=== PATIENT | female | born 1960 | race Caucasian/White ===

== ENCOUNTER 2020-12-12 08:58 | Observation (INO) | payer OTHER ==
[~2020-12-12] VITALS: Ht 154.9 cm; Wt 91.2 kg
--- NOTE | ~2020-12-12 | OP ---
[facility] [address] [place] [address] OPERATIVE REPORT Name: HUSSAIN SCHWARTZ Room: [address] Ya#: [id number] Admission: 12/12/20 Attend Phys: Harrison Barajas Discharge: Date of : 62 Report #: [id number] THIS REPORT FOR: cc: Physician not on staff Physician not on staff Harrison Barajas MD ~ DOC #: [id number] Harrison Barajas MD DATE OF SURGERY: 12/12/2020 PREOPERATIVE DIAGNOSIS: Paraesophageal hernia. POSTOPERATIVE DIAGNOSIS: Paraesophageal hernia. OPERATION: Laparoscopic repair of paraesophageal hernia with mesh implantation with partial fundoplication. SURGEON: Harrison Barajas MD. ANESTHESIA: General. ESTIMATED BLOOD LOSS: Minimal. SPECIMENS: None. DESCRIPTION OF PROCEDURE: After informed consent was obtained, the patient was brought to the operating room and placed supine. SCDs were placed and working, preoperative antibiotics were administered, general anesthesia was induced. The abdomen was then prepped and draped in the usual sterile fashion. A 1 mm incision was made in the left upper quadrant. Veress needle was inserted. Pneumoperitoneum was established. A left periumbilical 10 mm trocar was then placed under direct vision. A left upper quadrant 5 mm trocar was placed as well as 2 right upper quadrant 5 mm ports. A Catina retractor was inserted through an incision in the epigastrium. The liver was then retracted superiorly and anteriorly. The pars flaccida was grasped and I incised the pars flaccida. LigaSure dissection was used to carry out dissection up to the right sukhi. The phrenoesophageal ligament was incised. The left sukhi was identified. Small hiatal hernia was then reduced. There was about 4 cm of intra-abdominal esophagus. I then took down the short gastric vessels using the LigaSure device. This was used to cauterize the short gastric vessels and [place] [address] OPERATIVE REPORT Name: HUSSAIN SCHWARTZ Room: [address] Naomy Pandya#: [id number] Admission: 12/12/20 Attend Phys: Harrison Barajas Discharge: Date of : 62 Report #: [id number] I performed a cruroplasty with a single 2-0 Ethibond suture. A 1 cm Phasix mesh was inserted on both sides of the crura to act as a pledget. The fundus of the stomach was then brought posteriorly around the distal esophagus. A 270-degree partial fundoplication was undertaken by using 2 sutures on each side of the esophagus and tying it down to the fundus. After this had been done, it did not appear too loose or too tight. The ports were then removed under direct vision after the liver was placed back into its normal position. The skin was then closed with 4-0 Monocryl. Incisions were dressed with Steri-Strips. COMPLICATIONS: None. DISPOSITION: The patient was taken to recovery in satisfactory condition. Harrison Barajas MD JDP/JOANNA By: [id number] Barajas MD /nt
[~2020-12-12 08:58] MED LIST: BUSPIRONE HCL10 MG PO; NORVASC5 MG PO; SYNTHROID88 MC1 PO; VITAMIN C100 MG; VITAMIN D-40010 MCG
[2020-12-12 10:02] LABS: HEMATOCRIT 43.8 % (37.0-47.0); HEMOGLOBIN 15.4 gm/dL (12.0-15.0); MCH 32.5 pg (26.0-34.0); MCHC 35.1 g/dL (28.0-37.0); MCV 92.7 fL (80.0-100.0); MPV 8.9 fl. (7.2-11.1); RBC 4.72 mil/uL (4.20-5.00); WBC 6.7 thou/uL (4.0-11.0)
--- NOTE | 2020-12-12 10:38 | EKG ---
[place] [address] ELECTROCARDIOGRAM REPORT Name: HUSSAIN SCHWARTZ Room: [address]R.#: [id number] Admission: 12/12/20 Attend Phys: Harrison Cardoso Discharge: Date of : 62 Date of Service: 12/12/20 0933 Report #: [id number] THIS REPORT FOR: //name// [facility] Test Date: 2020-12-12 Test Time: 09:33:37 Pat Name: HUSSAIN SCHWARTZ Department: Room: [place] [address] Gender: F [employer]: HA : 1960 Requested By: Harrison Barajas Order Number: [id number] Jesus MD: Anthony Bui Measurements Intervals [place] Rate: 70 P: [place]: 190 QRS: -21 QRSD: 142 T: 115 QT: 457 QTc: 494 Interpretive Statements Atrial-paced complexes Left bundle branch block Baseline wander in lead(s) II,III,aVF No previous ECG available for comparison Electronically Signed On 12-12-2020 10:37:58 CDT by Anthony Bui [email or web address] <ELECTRONICALLY SIGNED> By: Anthony Bui MD, [facility] 12/12/20 1037 0933 0933 Anthony Bui MD, [facility] /EPI
[2020-12-12 13:44] LABS: CALCIUM 9.5 mg/dL (8.5-10.1); CREATININE 0.9 mg/dL (0.6-1.3); POTASSIUM 3.8 mmol/L (3.5-5.1)
[2020-12-12 16:40] VITALS: BP 142/73
[2020-12-12 17:10] VITALS: BP 140/72
--- NOTE | 2020-12-12 17:30 | NUR ---
PT UP TO BEDSIDE COMMODE TO VOID. PT STEADY WITH STANDBY ASSIST. PT PLACED ON CAPNO BY RESPIRATORY THERAPY. WILL CONTINUE TO MONITOR.
[2020-12-12 17:40] VITALS: BP 148/76
[2020-12-12 18:10] VITALS: BP 141/76
[2020-12-12 21:04] VITALS: BP 132/69
[2020-12-13] VITALS (7 sets, daily range): BP systolic 130–142; BP diastolic 47–74
--- NOTE | 2020-12-13 04:21 | NUR ---
PT A&O X 4. VSS ON 2L WITH CAPNO. DENIED N/V. PAIN MANAGED WITH MORPHINE AND NORCO. UP TO BSC WITH SBA. LAP SITES C/D/I. CALL LIGHT WITHIN REACH. WILL CONTINUE TO MONITOR.
--- NOTE | 2020-12-13 13:56 | NUR ---
PT ALERT AND ORIENTED X 4. PT STEADILY AMBULATORY WITHOUT ASSIST. AT BEDSIDE. PT STATES MINIMAL DISCOMFORT AT THIS TIME. RELIEF OBTAINED WITH PRN PAIN MEDICATION THIS SHIFT. PT GIVEN PAPER RX FOR PAIN MEDS. IV TAKEN OUT. PT TOOK A SHOWER WITH MINIMAL ASSIST. PT TOLERATING CLEAR LIQUIDS. DENIES NAUSEA. STERI STRIPS INTACT ON ABDOMEN. NO DRAINAGE NOTED AT SITES. VSS. PT TO FOLLOW UP WITH SURGEON. NO OTHER QUESTIONS AT THIS TIME.
== END 2020-12-13 14:01 | disposition home or self-care (01) ==
LOC: M.TBA 08:58 → M.PRE 09:52 → M.ORTHSURG 16:31
PROVIDERS: ADMIT Surgery; ATTEND Surgery
DX: K44.9 Diaphragmatic hernia without obstruction or gangrene (principal); E03.9 Hypothyroidism, unspecified; I10 Essential (primary) hypertension; Z88.8 Allergy status to other drugs, medicaments and biological substances; Z88.2 Allergy status to sulfonamides; Z88.0 Allergy status to penicillin; Z95.0 Presence of cardiac pacemaker